=== PATIENT | female | born 1945 | race Caucasian/White ===

== ENCOUNTER 2017-01-24 06:12 | Day surgery (SDC) | payer OTHER, BC ==
[2017-01-18 16:58] VITALS: BMI 36.6
[2017-01-24] MEDS ORDERED: POVIDONE-IODINE 5% OPHTHALMIC PREP 30 ML SOLUTION ONE ×2 (07:18→08:21)
[2017-01-24] MEDS ORDERED: BACITRACIN 3.5 GM OPTHALMIC OINT TUBE ONE (07:18)
[2017-01-24] MEDS ORDERED: BUPIVACAINE HCL/PF 2.5 MG/ML - 30 ML VIAL IJ ONE (07:18)
[2017-01-24] MEDS ORDERED: LIDOCAINE 1%/EPI 1:100000 (20 ML MULTI DOSE VIAL) ONE ×2 (07:18→07:41)
[2017-01-24] MEDS ORDERED: TETRACAINE 0.5% OPHTH SOLN 2 ML BOTTLE ONE (07:18)
[2017-01-24] MEDS ORDERED: BUPIVACAINE HCL/PF 0.5% (5MG/ML) 10 ML VIAL ONE (07:21)
[2017-01-24] MEDS ORDERED: PROPOFOL 20 ML ONE ×6 (07:24→10:10)
[2017-01-24] MEDS ORDERED: MIDAZOLAM HCL 2 MG/2 ML SINGLE DOSE VIAL ONE (07:25)
[2017-01-24] MEDS ORDERED: SUCCINYLCHOLINE CHLORIDE 200 MG/10 ML VIAL ONE (07:25)
[2017-01-24] MEDS ORDERED: ceFAZolin SODIUM 1 GM VIAL ONE (07:57)
[2017-01-24] MEDS ORDERED: THROMBIN (BOVINE) 5,000 UNIT VIAL TP ONE (08:14)
[2017-01-24] MEDS ORDERED: ONDANSETRON 4 MG/2 ML VIAL ONE (08:31)
[2017-01-24] MEDS ORDERED: DEXAMETHASONE SOD PHOSPHATE 4 MG/1 ML VIAL ONE (08:31)
[2017-01-24] MEDS ORDERED: ACETAMINOPHEN 500 MG TABLET (FP) PO PRN (10:32)
[2017-01-24] MEDS ORDERED: oxyCODONE HCL 5 MG TABLET PO PRN (10:40)
[2017-01-24] MEDS ORDERED: ONDANSETRON 4 MG/2 ML VIAL IVPUSH PRN (10:40)
[2017-01-24] MEDS ORDERED: LACTATED RINGERS SOLUTION 1,000 ML IV SCH (10:45)
[2017-01-24] MEDS ORDERED: oxyCODONE HCL 5 MG TABLET ONE (12:06)
[2017-01-24 15:47] VITALS: BP 150/78; PULSE 76
[2017-01-24 15:54] VITALS: TEMP 98
--- NOTE | 2017-01-25 06:44 | OP ---
DATE OF OPERATION: 01/24/2017 PREOPERATIVE DIAGNOSES: 1. Epiphora with lower lid laxity. 2. Ectropion. 3. Punctal stenosis, both lower lids. POSTOPERATIVE DIAGNOSES: 1. Epiphora with lower lid laxity. 2. Ectropion. 3. Punctal stenosis, both lower lids. 4. Dermatochalasis bilaterally. 5. Temporal brow ptosis, left. PROCEDURE: 1. Repair of ectropion, right lower lid. 2. Repair of ectropion, left lower lid. 3. Repair of punctal stenosis, right lower lid with punctoplasty of peripunctal stenosis with punctoplasty, left lower lid. 4. Jorge cautery with conjunctivoplasty, right. 5. Jorge cautery with conjunctivoplasty, left. 6. Blepharoplasty, both upper lids. SURGEON: Mat Euceda MD ANESTHESIA: Local with sedation. COMPLICATIONS: None. ESTIMATED BLOOD LOSS: 5 to 10 mL. DESCRIPTION OF OPERATION: Patient brought to the operating room and placed on the operating room table. Vital signs were monitored by Anesthesia. Tetracaine was placed in both eyes. The patient had been marked preoperatively in the holding area in the upright position. She was positioned on the table. Vital signs were performed. Timeout was performed, and then, after tetracaine was placed in both eyes, the lid creases were marked symmetrically in both upper lids, approximately 10 mm above the lash line centrally, tapering nasally and temporally, not extending beyond the punctum, and these were marked with ruler and double checked with calipers to be symmetric. Then, leaving approximately 12 mm below the brow line, the patient with rather full eyelids, the superior extent of the ellipses were marked, extending out to the extent of the temporal pathak of both eyelids. The skin was pinched between forceps to ensure that there would be gentle lash eversion and nothing beyond. After intravenous sedation, each eyelid was then injected with 2-3 mL of 2% Xylocaine, 1:100,000 epinephrine, and this was allowed to disperse throughout the eyelid. Lateral canthal lines were marked as well in preparation for ectropion repair. Patient was prepped and draped in sterile fashion, exposing both eyes. The following procedure was performed on the upper lid. The creases were incised, and the upper ellipses were incised and the skin was removed from the upper lids as dictated by the previously marked lines. Hemostasis was achieved with [place] needle. A row of cautery was placed along the inferior edges of the incision to accentuate the lid crease. Nasally, the orbicularis was cut with a [place] needle and then gentle spreading with a Rodriguez scissors was used to identify the nasal fat pad, and the fat pad was then dissected out of the nasal eyelid and resected with a [place] needle. Hemostasis was achieved. This completed the fat dissection and the skin dissection. Attention was turned to the left brow, and an incision was made through the orbicularis, exposing the orbital rim. Then, using gentle dissection with a peanut, the tissue of the SOOF or suborbicularis oculi fat pad was elevated above the orbital rim for approximately 10 mm in the preperiosteal plane. Using a 30-gauge needle, this was passed through the skin-muscle flap, identifying the inferior edge of the brow just lateral and central, and a 5-0 Prolene was used to secure the periosteal suture 10 mm above the orbital rim and then through the area, delineating the inferior edge of the brow. This was tied with a slip knot. It was examined and the brow seemed to be symmetric and the Prolene was tied, resulting in a temporal browpexy to correct the brow asymmetry on the left. Antibiotic irrigation was used throughout the case. Cautery was used throughout the case. Then, the eyelids were closed with running and supplemented with interrupted 6-0 nylon suture, closing the incision, completing the blepharoplasty. Attention was now turned to the ectropion and epiphora. Bilaterally, lateral canthal incisions were made with a 15 blade. These were carried down to the periosteum with a [place] needle. The inferior shanda of the lateral canthal tendon was from the orbital rim with sharp dissection. The lids were overlapped, marked with a sterile marking pen, divided to the anterior and posterior lamella. The anterior lamella was excised. The posterior lamella was denuded of epithelium with an tangential scrape with a number-11 blade. Retractors were released with Bhargav, and the epithelium along the margin was excised, creating lateral tarsal strips. These were reattached to the orbital rim at the appropriate position at the junction with the superior shanda and lateral canthal tendons with double-arm 5-0 Prolene reinforced with 6-0 Vicryl suture. These were not tied at this point. Lids were everted. The punctum was dilated with punctal dilator, and a small snip punctoplasty was performed bilaterally to widen the punctal opening, excising the posterior lip of the punctum. Jorge cautery was placed below the punctum to result in punctal eversion and shrink the conjunctiva. The lateral canthal angle was reformed with buried 5-0 chromic sutures at the luna line of the upper and lower lid. Once these were tied, the Prolene was now tied, reattaching the tarsal strips to the orbital rim. The excess tarsal strip was overlapped over the Prolene tie with a 5-0 chromic interrupted. Subcuticular tissues were closed with 5-0 chromic. The skin was closed with running 6-0 plain suture in plastic technique. Bacitracin ointment was placed on the sutures of the upper lid and lateral canthal and in both eyes, and the patient was taken to recovery room in stable condition. MAT EUCEDA M.D. [id number]
--- NOTE | 2017-01-27 17:36 | PATH ---
Surgical Pathology Report Patient Name: TAVON TRINIDAD Med. Rec. #: [id number] /Age/Gender: 1945 (Age: 71) / F Account: [id number] Location: [facility] AM[facility] Taken: 01/24/2017 Received: 01/24/2017 Reported: 01/27/2017 Physicians: Evelio Euceda Specimen(s) Received A: RIGHT UPPER EYELID B: LEFT UPPER EYELID Clinical History Ectropion both lower eyelids Final Diagnosis A. EYELID, RIGHT UPPER, BLEPHAROPLASTY: SKIN WITH NO PATHOLOGIC FINDINGS. B. EYELID, LEFT UPPER, BLEPHAROPLASTY: SKIN WITH NO PATHOLOGIC FINDINGS. Electronically Signed Tammy Butler M.D. Gross Description A. Received in formalin labeled "right upper eyelid," is a 4.5 x 0.9 cm kuhn, irregular, unremarkable skin shave. [facility] sections are submitted in one cassette. B. Received in formalin labeled "left upper eyelid," is a 4.5 x 0.6 cm kuhn, irregular, unremarkable skin shave. [facility] sections are submitted in one cassette. 01/25/2017 [facility]01/25/2017
== END 2017-01-24 13:08 | disposition home or self-care (01) ==
LOC: FASU 06:12
PROVIDERS: ATTEND Ophthalmology
PROC: 0W020ZZ Alteration of Face, Open Approach (ICD-10-PCS; 2017-01-24)
PROC: 08SR0ZZ Reposition Left Lower Eyelid, Open Approach (ICD-10-PCS; principal; 2017-01-24 08:25)
PROC: 08SQ0ZZ Reposition Right Lower Eyelid, Open Approach (ICD-10-PCS; 2017-01-24 08:25)
DX: H02.102 Unspecified ectropion of right lower eyelid (principal); H02.105 Unspecified ectropion of left lower eyelid; H04.203 Unspecified epiphora, bilateral; H04.563 Stenosis of bilateral lacrimal punctum; H02.835 Dermatochalasis of left lower eyelid; H02.832 Dermatochalasis of right lower eyelid; H02.402 Unspecified ptosis of left eyelid
CPT/HCPCS: 88302-TC; 94760

== ENCOUNTER 2019-08-19 03:09 | Emergency (ER) | payer OTHER, BC ==
[2019-08-19] MEDS ORDERED: KETOROLAC TROMETHAMINE 30 MG/1 ML VIAL IVPUSH ONE (03:13)
--- NOTE | 2019-08-19 03:13 | PDOC ---
History of Present Illness - General Chief Complaint: Pain, Acute Stated Complaint: ABD/FLANK PAIN History Source: Patient - History of Present Illness Initial Comments: 08/19/19 04:33 Pt states that she is on macrobid for a UTI and she is seeing her PMD Jonathan tomorrow. Pt has no dysuria and no burning on urination. But she has RUQ pain and right side and right flank pain Currently pain is there only with palpation Pt has no fever and no chills. Pt has no diarrhea or constipation She notes that 3 days ago she ate a lot of starch and she felt pain since that time. Pain is getting worse. She had a GB removal 16 years ago. She has a PMHX of HTN PSHx of cholecystectomy, meniscus repair, breast surg. Is this a multiple visit Asthma Patient?: No Timing/Duration: other (3 days of pain since ; pt ate popcorn, rice and pasta; states that she was hungry. Since then RUQ pain) Severity: moderate Past History - Travel History Traveled outside of the country in the last 30 days: No Close contact w/someone who was outside of country & ill: No - Medical History Allergies/Adverse Reactions: Allergies Allergy/AdvReac Type Severity Reaction Status Date / Time metronidazole [From Flagyl] Allergy Severe Difficulty Verified 10/12/15 09:14 Breathing montelukast sodium Allergy Severe SOB Verified 10/12/15 09:14 [From Singulair] Penicillins Allergy Intermediate Rash Verified 10/12/15 09:14 codeine AdvReac Verified 08/30/17 01:18 Home Medications: Ambulatory Orders Olmesartan Medoxomil [Benicar (Nf)] 30 mg PO HS 08/20/14 Nitrofurantoin Monohyd/M-Cryst [Macrobid -] 100 mg PO BID 08/19/19 Anemia: No Asthma: No Cancer: No Cardiac Disorders: No CVA: No COPD: No CHF: No Dementia: No Diabetes: No GI Disorders: No Disorders: No HTN: Yes Hypercholesterolemia: No Liver Disease: No Seizures: No Thyroid Disease: No - Surgical History Abdominal Surgery: Yes Appendectomy: No Cardiac Surgery: No Cholecystectomy: Yes Lung Surgery: No Neurologic Surgery: No Orthopedic Surgery: Yes (RIGHT KNEE ARTHROSCOPIC SURGERY X2) - Psycho-Social/Smoking History Smoking Status: No Smoking History: Never smoked Have you smoked in the past 12 months: No Number of Cigarettes Smoked Daily: 0 Cigars Per Day: 0 Review of Systems - Review of Systems Constitutional: No: Symptoms Reported, See HPI, Chills, Diaphoresis, Fever, Loss of Appetite, Malaise, Night Sweats, Weakness, Weight Stable, Unintentional Wgt. Loss, Unexplained wgt Loss, Other HEENTM: No: Symptoms Reported, See HPI, Eye Pain, Blurred Vision, Tearing, Recent change in vision, Double Vision, Cataracts, Ear Pain, Ocular Prothesis, Ear Discharge, Nose Pain, Nose Congestion, Tinnitus, Nose Bleeding, Hearing Loss, Throat Pain, Throat Swelling, Mouth Pain, Dental Problems, Difficulty Swallowing, Mouth Swelling, Other Respiratory: No: Symptoms reported, See HPI, Cough, Orthopnea, Shortness of Breath, SOB with Exertion, SOB at Rest, Stridor, Wheezing, Productive cough, Hemoptysis, Other Cardiac (ROS): No: Symptoms Reported, See HPI, Chest Pain, Edema, Irregular Heart Rate, Lightheadedness, Palpitations, Syncope, Chest Tightness, Other ABD/GI: Yes: Other (RUQ pain and epigastric pain). No: Symptoms Reported, See HPI, Abdominal Distended, Abd. Pain w/ defecation, Blood Streaked Bowels, Constipated, Diarrhea, Difficulty Swallowing, Nausea, Poor Appetite, Poor Fluid Intake, Rectal Bleeding, Vomiting, Indigestion, Abdominal cramping, Tarry Stools : Yes: Other (Pt is being treated with macrobid for a UTI). No: Symptoms Reported, See HPI, Burning, Dysuria, Discharge, Frequency, Flank Pain, Hematuria, Incontinence, Pain, Urgency, Testicular Mass, Testicular Swelling, Lesions, Testicular Pain Musculoskeletal: No: Symptoms Reported, See HPI, Back Pain, Gout, Joint Pain, Joint Swelling, Muscle Pain, Muscle Weakness, Neck Pain, Joint Stiffness, Other Integumentary: No: Symptoms Reported, See HPI, Bruising, Change in Color, Change in Hair/Nails, Dryness, Erythema, Flushing, Lesions, Lumps, Pallor, Pruritus, Rash, Sweating, Other Neurological: No: Symptoms reported, See HPI, Headache, Numbness, Paresthesia, Pre-Existing Deficit, Seizure, Tingling, Tremors, Weakness, Unsteady Gait, Ataxia, Dizziness, Other Psychiatric: No: Anxiety, Depression, Frequent Crying, Stressors, Sleep Pattern Change, Emotional Problems, Mood Swings, Change in Appetite, Other Hematologic/Lymphatic: No: Symptoms Reported, See HPI, Anemia, Blood Clots, Easy Bleeding, Easy Bruising, Bleeding Diathesis, Lymph Node Abnormalities, Swollen Glands, Other *Physical Exam - Physical Exam General Appearance: Yes: Nourished, Appropriately Dressed, Apparent Distress, Mild Distress, Obese. No: Moderate Distress HEENT: positive: EOMI, RADHA, Normal ENT Inspection, Normal Voice, Symmetrical, TMs Normal, Pharynx Normal Neck: positive: Trachea midline, Supple Respiratory/Chest: positive: Lungs Clear, Normal Breath Sounds. negative: Accessory Muscle Use Cardiovascular: positive: Regular Rhythm, Regular Rate, S1, S2 Gastrointestinal/Abdominal: positive: Normal Bowel Sounds, Soft, Tenderness (RUQ), Mass (feels like hard stool in the RUQ) Musculoskeletal: positive: Normal Inspection. negative: CVA Tenderness Extremity: positive: Normal Capillary Refill, Normal Inspection, Normal Range of Motion, Tender, Pelvis Stable Integumentary: positive: Normal Color, Dry, Warm, Pale Neurologic: positive: radio repairer II-XII NML intact, Fully Oriented, Alert, Normal Mood/Affect, Normal Response, Motor Strength 5/5 ED Treatment Course - LABORATORY CBC & Chemistry Diagram: 08/19/19 03:30 08/19/19 03:30 Medical Decision Making - Medical Decision Making 08/19/19 04:35 Pt's BP is high because she fell asleep without her BP medication SHe woke up and took the nebicar at 1AM 08/19/19 05:42 Labs are normal. Pt has a normal WBC; normal CBC; pt has normal chem; she has normal BUN/Cr Normal LFTs and she has a normal UA; however she has some blood in the urine and she will not be taken off her macrobid and switcehd to a different abx, as iot seems to be working. 08/19/19 06:25 Patient Name: TAVON TRINIDAD THIS IS A PRELIMINARY REPORT FROM [facility] DATE OF SERVICE: 2019-08-19 05:39:34 IMAGES: [id number] EXAM: ABDOMEN \T\ PELVIS CT WITH IV CONTRAST One or more of the following dose reduction techniques was utilized: Automated exposure control, adjustment of the mA and or kVp according to patient's size, use of an iterative reconstruction technique. CTDIvol(mGy) = 18.7 Total DLP (mGycm) = 854.83 CONTRAST: 99 cc of Omnipaque 350 utilized IV HISTORY: Right upper quadrant pain. 73-year-old female. CONFIDENTIALITY NOTICE: This information is intended only for the use of the recipient(s) named above. If you are not the intended recipient, or a person responsible for delivering it to the intended recipient, you are hereby notified that any disclosure, copying, distribution or use of any of the information contained in or attached to this transmission is STRICTLY PROHIBITED. If you have received this transmission in error, please immediately notify [facility] [employer] [facility] and destroy the original transmission and its attachments without saving them in any manner [address] [facility] [employer] [facility] [address] [place] [address] Phone: [phone] ([phone]) Fax: Email: [email or web address] Patient Information: : 1945 Order Type: Preliminary Name: VIVI MONTES DE OCA Sex: F Study Description: CT ABDOMEN AND PELVIS Modality: CT [facility] Referring Physician: ADELA OLIVEIRA COMPARISON: None. FINDINGS: Cardiac silhouette is normal in appearance. Lung bases are clear. Diffuse fatty infiltration of the liver. Otherwise, uniform attenuation and enhancement is seen throughout the liver, spleen and pancreas. No ductal dilatation, mass or cystic change. The gallbladder has been surgically removed. No adrenal masses. Good excretion of IV contrast by both kidneys is present without hydronephrosis, mass or cystic change. No retroperitoneal adenopathy or fibrosis. Aortic calcifications are present as well as iliac artery calcifications. No evidence of aneurysmal dilatation stenosis. The contrast flow into both lower extremities is evident. Stomach, small bowel and colon show no evidence of bowel wall thickening. No acute inflammatory changes the right or left lower quadrant. No evidence of obstruction or ileus. The terminal ileum and appendix are normal in the right lower quadrant. Pelvic CT shows the appendix in the right lower quadrant to be normal in appearance. No diverticular disease. No acute inflammatory changes in the true pelvis. No pelvic adenopathy or free fluid in the true pelvis. The uterus is atrophic with small serosal uterine fibroids enhance. The ovaries also appear atrophic. The urinary bladder is normal in appearance. No evidence of ureterolithiasis or ureteral dilatation. The perivesicular and perirectal fat is well preserved. No visible diverticular disease. 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 No lytic or blastic lesions to bone. IMPRESSION Previous cholecystectomy. No biliary or pancreatic ductal dilatation. Diffuse fatty infiltration of the liver. 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 The uterus and ovaries are atrophic. No visible acute abdominal disease or process. No bowel obstruction or ileus. No significant stool burden in the colon. Discharge - Discharge Information Problems reviewed: Yes Clinical Impression/Diagnosis: Abdominal pain Condition: Improved Disposition: HOME - Follow up/Referral Referrals: Yazan Castillo MD [Primary Care Provider] - - Patient Discharge Instructions Patient Printed Discharge Instructions: Eating a Diet Rich in Fruits and Vegetables - Post Discharge Activity
[2019-08-19 03:24] VITALS: BP 195/95; PULSE 83; TEMP 98.3; BMI 37.0
[2019-08-19] MEDS ORDERED: KETOROLAC TROMETHAMINE 30 MG/1 ML VIAL ONE (03:28)
[2019-08-19 04:31] LABS: BASO % 0.7 % (0-2.0); EOS % 4.1 % (0-4.5); HEMATOCRIT 42.3 % (32.4-45.2); LYMPH % 31.8 % (8-40); MCH 29.4 pg (25.7-33.7); MCHC 33.2 g/dl (32.0-36.0); MEAN CELL VOLUME 88.7 fl (80-96); MEAN PLT VOLUME 8.1 fl (7.5-11.1); NEUT % 51.4 % (42.8-82.8); PLATELET COUNT 269 K/MM3 (134-434); RBC 4.77 M/mm3 (3.60-5.2); RDW 13.5 % (11.6-15.6); WHITE BLOOD COUNT 8.1 K/mm3 (4.0-10.0)
[2019-08-19 04:54] LABS: URINE APPEARANCE CLEAR; URINE BILIRUBIN NEGATIVE (NEGATIVE); URINE COLOR YELLOW; URINE GLUCOSE (UA) NEGATIVE (NEGATIVE); URINE KETONE NEGATIVE (NEGATIVE); URINE PROTEIN TRACE (NEGATIVE)
[2019-08-19 04:55] LABS: EPI CELLS 34 /uL (0-25.1); HYALINE CASTS 4 /uL (0-3.1); URINE BACTERIA 22 /uL (0-1359); URINE LEUK ESTERASE TRACE (NEGATIVE); URINE NITRITE NEGATIVE (NEGATIVE); URINE RBC 310 /uL (0-23.9); URINE UROBILINOGEN 0.2 mg/dL (0.2-1.0); URINE WBC 26 /uL (0-25.8)
[2019-08-19 04:57] LABS: ALBUMIN 4.1 g/dl (3.4-5.0); BILIRUBIN,TOTAL 0.5 mg/dL (0.2-1); CALCIUM 9.4 mg/dL (8.5-10.1); CREATININE 0.8 mg/dL (0.55-1.3); POTASSIUM 3.7 mmol/L (3.5-5.1); TOT PROT 7.6 g/dl (6.4-8.2)
== END 2019-08-19 06:32 | disposition home or self-care (01) ==
LOC: FER 03:09 → SUPCPDRO 03:09 → FER 06:32
PROC: 3E033GC Introduction of Other Therapeutic Substance into Peripheral Vein, Percutaneous Approach (ICD-10-PCS; principal; 2019-08-19)
DX: R10.11 Right upper quadrant pain (principal)
CPT/HCPCS: 36415; 74177-TC; 80053; 81003; 85025; 96374; 99285-25; Q9967

== ENCOUNTER 2020-06-16 10:20 | Emergency (ER) | payer OTHER, BC ==
[2020-06-16 10:34] VITALS: BP 159/60; PULSE 90; TEMP 98; BMI 36.8
[2020-06-16] MEDS: ACETAMINOPHEN 325 MG TABLET (FP) PO ONE ×2 (11:21→11:34)
[2020-06-16] MEDS: DIPHTH,PERTUSS(ACELL),TET 0.5 ML DISP.SYRIN IM ONE ×2 (11:22→11:34)
== END 2020-06-16 12:56 | disposition home or self-care (01) ==
LOC: FER 10:20
DX: M79.604 Pain in right leg (principal)
CPT/HCPCS: 73552-TC-RT-FY; 73590-TC-RT-FY; 90715; 99284-25

== ENCOUNTER 2021-06-10 14:39 | Emergency (ER) | payer OTHER, BC ==
[2021-06-10 15:17] VITALS: TEMP 98; BMI 36.3
[2021-06-10] MEDS ORDERED: FAMOTIDINE 20 MG/50 ML IVPB 20 MG/50 ML MG IVPB ONE ×2 (15:57→16:07)
[2021-06-10] MEDS ORDERED: MAG HYDROX/AL HYDROX/SIMETH 30 ML UNIT-DOSE CUP PO ONE (15:57)
[2021-06-10] MEDS ORDERED: MAG HYDROX/AL HYDROX/SIMETH 30 ML UNIT-DOSE CUP ONE (16:07)
[2021-06-10 16:36] LABS: ALBUMIN 3.9 g/dl (3.4-5.0); CALCIUM 9.3 mg/dl (8.5-10); CREATININE 0.6 mg/dl (0.55-1.3)
[2021-06-10 16:37] LABS: BILIRUBIN,TOTAL 0.5 mg/dl (0.2-1); TOT PROT 7.3 g/dl (6.4-8.2)
[2021-06-10 16:38] LABS: MCH 30.1 pg (25.7-33.7)
[2021-06-10 16:44] LABS: HEMATOCRIT 39.9 % (32.4-45.2); HEMOGLOBIN 13.7 G/dL (10.7-15.3); MCHC 34.4 g/dl (32.0-36.0); MEAN CELL VOLUME 87.3 fl (80-96); MEAN PLT VOLUME 7.6 fl (7.5-11.1); PLATELET COUNT 248.3 10^3/uL (134-434); RBC 4.57 10^6/uL (3.60-5.2); RDW 14.3 % (11.6-15.6); WHITE BLOOD COUNT 6.9 10^3/uL (4.0-10.8)
[2021-06-10 17:21] LABS: EPITHELIAL CELLS FEW /hpf
[2021-06-10 17:25] VITALS: BP 150/83; PULSE 76
[2021-06-10 18:24] LABS: PLATELET ESTIMATE ADEQUATE
[2021-06-10] MEDS ORDERED: ACETAMINOPHEN 1000 MG/100 ML BAG IVPB ONE (18:33)
[2021-06-10] MEDS ORDERED: ACETAMINOPHEN INJECTION 100 ML IVPB ONE (18:58)
== END 2021-06-10 20:48 | disposition home or self-care (01) ==
LOC: FER 14:39
PROC: 3E0333Z Introduction of Anti-inflammatory into Peripheral Vein, Percutaneous Approach (ICD-10-PCS; principal; 2021-06-10)
PROC: 3E033GC Introduction of Other Therapeutic Substance into Peripheral Vein, Percutaneous Approach (ICD-10-PCS; 2021-06-10)
DX: R10.9 Unspecified abdominal pain (principal)
CPT/HCPCS: 36415; 74177-TC; 80053; 81003; 81015; 83690; 84484; 85025; 87086; 87186; 93005; 99285-25; Q9967

== ENCOUNTER 2021-08-18 07:04 | Day surgery (SDC) | payer OTHER, BC ==
[2021-08-11 15:51] VITALS: BMI 36.6
[2021-08-18] MEDS ORDERED: LIDOCAINE HCL/PF 2% SDV 5ML VIAL ONE (07:40)
[2021-08-18] MEDS ORDERED: PROPOFOL 20 ML ONE ×4 (07:40)
[2021-08-18 10:01] VITALS: TEMP 98
[2021-08-18 10:04] VITALS: BP 154/70; PULSE 74
== END 2021-08-18 10:46 | disposition home or self-care (01) ==
LOC: FASU-ENDO 07:04
PROVIDERS: ATTEND Internal Medicine Gastroenterology
PROC: 0DB98ZX Excision of Duodenum, Via Natural or Artificial Opening Endoscopic, Diagnostic (ICD-10-PCS; 2021-08-18)
PROC: 0DB68ZX Excision of Stomach, Via Natural or Artificial Opening Endoscopic, Diagnostic (ICD-10-PCS; 2021-08-18)
PROC: 0DJD8ZZ Inspection of Lower Intestinal Tract, Via Natural or Artificial Opening Endoscopic (ICD-10-PCS; principal; 2021-08-18 09:09)
DX: Z12.11 Encounter for screening for malignant neoplasm of colon (principal); Z83.71 Family history of colonic polyps; K31.7 Polyp of stomach and duodenum; K29.50 Unspecified chronic gastritis without bleeding; R10.13 Epigastric pain
CPT/HCPCS: 43239; G0121; 88305-TC; 88342-TC

== ENCOUNTER 2021-10-25 09:39 | Emergency (ER) | payer OTHER, BC ==
[2021-10-25 09:55] VITALS: BP 144/84; PULSE 77; RESP 16; TEMP 98; BMI 36.3
[2021-10-25] MEDS ORDERED: CEPHALEXIN MONOHYDRATE 500 MG CAPSULE (UD) PO ONE (10:14)
[2021-10-25] MEDS ORDERED: CEPHALEXIN MONOHYDRATE 500 MG CAPSULE (UD) ONE (10:18)
[2021-10-25 10:39] LABS: EPITHELIAL CELLS FEW /hpf
== END 2021-10-25 10:33 | disposition home or self-care (01) ==
LOC: FER 09:39
DX: N30.90 Cystitis, unspecified without hematuria (principal)
CPT/HCPCS: 81003; 81015; 87086; 99283-25

== ENCOUNTER 2022-10-24 11:32 | Emergency (ER) | payer OTHER, BC ==
[2022-10-24 11:44] VITALS: BP 160/75; PULSE 93; RESP 18; TEMP 98; BMI 33.6
[2022-10-24] MEDS ORDERED: SODIUM CHLORIDE 0.9% 500 ML INFUS.BAG IV ONE (12:02)
[2022-10-24 12:41] LABS: HEMATOCRIT 42.7 % (32.4-45.2); HEMOGLOBIN 13.9 G/dL (10.7-15.3); MCH 29.4 pg (25.7-33.7); MCHC 32.5 g/dl (32.0-36.0); MEAN CELL VOLUME 90.5 fl (80-96); MEAN PLT VOLUME 7.8 fl (7.5-11.1); PLATELET COUNT 235.6 10^3/uL (134-434); RBC 4.72 10^6/uL (3.60-5.2); RDW 14.1 % (11.6-15.6); WHITE BLOOD COUNT 5.3 10^3/uL (4.0-10.8)
[2022-10-24 12:51] LABS: ALBUMIN 3.9 g/dl (3.4-5.0); BLOOD UREA NITROGEN 18.3 mg/dl (7-18); CALCIUM 9.1 mg/dl (8.5-10.1); CREATININE 0.7 mg/dl (0.6-1.3); POTASSIUM 3.7 mmol/L (3.5-5.1); SGOT/AST 10.8 U/L (15-37); SGPT/ALT 6.3 U/L (7-52); TOT PROT 6.3 g/dl (6.4-8.2)
[2022-10-24 13:09] LABS: EPITHELIAL CELLS FEW /hpf; URINE MUCUS FEW
[2022-10-24 13:56] LABS: BILIRUBIN,TOTAL 0.3 mg/dL (0.2-1)
== END 2022-10-24 14:29 | disposition home or self-care (01) ==
LOC: FER 11:32
DX: R10.84 Generalized abdominal pain (principal); R11.0 Nausea; E86.0 Dehydration
CPT/HCPCS: 36415; 74177-TC; 80053; 81003; 81015; 83690; 85027; 87086; 99285-25; Q9967

== ENCOUNTER 2023-03-15 13:58 | Emergency (ER) | payer OTHER, BC ==
[2023-03-15] MEDS ORDERED: ACETAMINOPHEN 325 MG TABLET (FP) PO ONE (14:31)
[2023-03-15 14:33] VITALS: BP 132/102; PULSE 72; RESP 17; TEMP 98.5; BMI 33.6
[2023-03-15] MEDS ORDERED: ACETAMINOPHEN 325 MG TABLET (FP) ONE (14:38)
== END 2023-03-15 16:02 | disposition home or self-care (01) ==
LOC: FER 13:58
DX: M25.552 Pain in left hip (principal); R22.42 Localized swelling, mass and lump, left lower limb; M25.572 Pain in left ankle and joints of left foot; W10.8XXA Fall (on) (from) other stairs and steps, initial encounter
CPT/HCPCS: 72131-TC; 73700-TC-RT; 93971-TC; 99284-25

== ENCOUNTER 2023-11-12 08:54 | Emergency (ER) | payer OTHER, BC ==
[2023-11-12 09:06] VITALS: BP 148/73; PULSE 71; RESP 18; TEMP 98.6; BMI 30.6
[2023-11-12 09:57] LABS: HEMATOCRIT 41.2 % (32.4-45.2); HEMOGLOBIN 13.6 G/dL (10.7-15.3); MCH 29.7 pg (25.7-33.7); MEAN CELL VOLUME 89.9 fl (80-96); MEAN PLT VOLUME 7.6 fl (7.5-11.1); PLATELET COUNT 268.3 10^3/uL (134-434); RBC 4.58 10^6/uL (3.60-5.2); RDW 14.1 % (11.6-15.6); WHITE BLOOD COUNT 7.7 10^3/uL (4.0-10.8)
[2023-11-12 10:03] LABS: PLATELET ESTIMATE ADEQUATE
[2023-11-12 10:20] LABS: ALBUMIN 4.4 g/dl (3.4-5.0); ALK PHOS 63 U/L (45-117); ANION GAP 11 mmol/L (4-13); BILIRUBIN,TOTAL 0.8 mg/dl (0.2-1); CHLORIDE 100 mmol/L (98-107); CO2 25 mmol/L (21-32); CREATININE 0.8 mg/dl (0.6-1.3); GLUCOSE,RANDOM 111 mg/dl (74-106); POTASSIUM 3.8 mmol/L (3.5-5.1); SGOT/AST 18 U/L (15-37); SGPT/ALT 14 U/L (7-52); SODIUM 136 mmol/L (136-145); TOT PROT 7.3 g/dl (6.4-8.2)
== END 2023-11-12 11:45 | disposition home or self-care (01) ==
LOC: FER 08:54
DX: M25.471 Effusion, right ankle (principal); M79.89 Other specified soft tissue disorders
CPT/HCPCS: 36415; 71046-TC-FY; 80053; 84484; 85027; 93005; 99285-25

== ENCOUNTER 2023-12-21 10:26 | Emergency (ER) | payer OTHER, BC ==
[2023-12-21 10:53] VITALS: BP 170/62; PULSE 67; RESP 18; TEMP 98.8; BMI 34.5
[2023-12-21] MEDS ORDERED: KETOROLAC TROMETHAMINE 30 MG/1 ML VIAL ONE (11:24)
[2023-12-21] MEDS ORDERED: LIDOCAINE 5% TOPICAL PATCH ONE (11:24)
[2023-12-21] MEDS: KETOROLAC TROMETHAMINE 30 MG/1 ML VIAL IM ONE (11:34)
[2023-12-21] MEDS: LIDOCAINE 5% TOPICAL PATCH TP ONE (11:34)
[2023-12-21 14:52] LABS: HIV INTERPRETATION NEGATIVE (NEGATIVE)
[2023-12-21] MEDS ORDERED: LIDOCAINE PATCH REMOVAL MC SCH (22:00)
== END 2023-12-21 14:06 | disposition home or self-care (01) ==
LOC: FER 10:26
PROC: 3E0233Z Introduction of Anti-inflammatory into Muscle, Percutaneous Approach (ICD-10-PCS; principal; 2023-12-21)
DX: M54.50 Low back pain, unspecified (principal)
CPT/HCPCS: 36415; 86803; 87389; 99284-25

== ENCOUNTER 2024-04-04 16:55 | Emergency (ER) | payer OTHER, BC ==
[2024-04-04 17:06] VITALS: BP 128/65; PULSE 63; RESP 18; TEMP 98.2; BMI 33.6
[2024-04-04 18:15] LABS: HEMATOCRIT 41.8 % (32.4-45.2); HEMOGLOBIN 14.1 G/dL (10.7-15.3); MCHC 33.6 g/dl (32.0-36.0); MEAN CELL VOLUME 86.4 fl (80-96); MEAN PLT VOLUME 7.9 fl (7.5-11.1); PLATELET COUNT 263.3 10^3/uL (134-434); RBC 4.84 10^6/uL (3.60-5.2); RDW 14.4 % (11.6-15.6); WHITE BLOOD COUNT 6.7 10^3/uL (4.0-10.8)
[2024-04-04 18:22] LABS: PLATELET ESTIMATE ADEQUATE
[2024-04-04 18:35] LABS: ALBUMIN 4.4 g/dl (3.4-5.0); ALK PHOS 60 U/L (45-117); ANION GAP 10 mmol/L (4-13); BILIRUBIN,TOTAL 0.5 mg/dl (0.2-1); CALCIUM 9.6 mg/dl (8.5-10.1); CHLORIDE 102 mmol/L (98-107); CO2 26 mmol/L (21-32); CREATININE 0.7 mg/dl (0.6-1.3); GLUCOSE,RANDOM 101 mg/dl (74-106); POTASSIUM 3.8 mmol/L (3.5-5.1); SGOT/AST 20 U/L (15-37); SGPT/ALT 18 U/L (7-52); SODIUM 138 mmol/L (136-145)
[2024-04-04] MEDS: SODIUM CHLORIDE 0.9% 500 ML INFUS.BAG IV ONE (19:10)
[2024-04-04 21:33] LABS: EPITHELIAL CELLS 0-5 /hpf
== END 2024-04-04 21:06 | disposition home or self-care (01) ==
LOC: FER 16:55
DX: E86.0 Dehydration (principal); N89.8 Other specified noninflammatory disorders of vagina; R10.84 Generalized abdominal pain; R53.1 Weakness; Z20.822 Contact with and (suspected) exposure to COVID-19
CPT/HCPCS: 0241U-QW; 36415; 71046-TC-FY; 74177-TC; 80053; 81003; 81015; 83605; 83690; 84484; 85027; 87086; 87186; 93005; 99285-25; Q9967

== ENCOUNTER 2024-04-23 14:23 | Emergency (ER) | payer OTHER, BC ==
[2024-04-23 14:45] VITALS: BP 166/66; PULSE 66; RESP 18; TEMP 97.3; BMI 33.6
[2024-04-23] MEDS ORDERED: DIPHTH,PERTUSS(ACELL),TET 0.5 ML DISP.SYRIN IM ONE (14:48)
[2024-04-23] MEDS: DIPHTH,PERTUSS(ACELL),TET 0.5 ML DISP.SYRIN IM ONE (14:50)
[2024-04-23 16:05] LABS: INR 0.96 (0.83-1.09)
[2024-04-23 16:08] LABS: ACTIVATED PTT 29.9 SECONDS (25.2-36.5)
[2024-04-23 16:11] LABS: HEMATOCRIT 35.3 % (32.4-45.2); HEMOGLOBIN 11.7 G/dL (10.7-15.3); MCHC 33.1 g/dl (32.0-36.0); MEAN CELL VOLUME 87.5 fl (80-96); MEAN PLT VOLUME 7.9 fl (7.5-11.1); PLATELET COUNT 218.2 10^3/uL (134-434); RBC 4.03 10^6/uL (3.60-5.2); RDW 14.3 % (11.6-15.6); WHITE BLOOD COUNT 6.2 10^3/uL (4.0-10.8)
[2024-04-23 16:13] LABS: PLATELET ESTIMATE ADEQUATE
[2024-04-23 16:33] LABS: BILIRUBIN,TOTAL 0.4 mg/dl (0.2-1); CREATININE 0.7 mg/dl (0.6-1.3); MAGNESIUM 2.2 mg/dL (1.8-2.4); PHOSPHOROUS 2.3 (2.5-4.9); POTASSIUM 3.8 mmol/L (3.5-5.1); TOT PROT 6.6 g/dl (6.4-8.2)
[2024-04-23 16:35] LABS: EPITHELIAL CELLS 0-5 /hpf
== END 2024-04-23 20:08 | disposition short-term general hospital (02) ==
LOC: FER 14:23
PROC: 3E0234Z Introduction of Serum, Toxoid and Vaccine into Muscle, Percutaneous Approach (ICD-10-PCS; principal; 2024-04-23)
DX: S06.6X9A Traumatic subarachnoid hemorrhage with loss of consciousness of unspecified duration, initial encounter (principal); Z23 Encounter for immunization; W01.198A Fall on same level from slipping, tripping and stumbling with subsequent striking against other object, initial encounter
CPT/HCPCS: 36415; 70450-TC; 70486-TC; 71045-TC-FY; 72125-TC; 72170-TC-FY; 80053; 81003; 81015; 83735; 84100; 84484; 85027; 85610; 85730; 86850; 86900; 86901; 87086; 90471; 90715; 93005; 99291

== ENCOUNTER 2024-08-08 08:01 | Emergency (ER) | payer OTHER, BC ==
[2024-08-08 08:11] VITALS: BP 149/80; PULSE 97; RESP 20; TEMP 99.1; BMI 33.5
[2024-08-08] MEDS: IBUPROFEN 400 MG TABLET (FP) PO ONE (08:42)
[2024-08-08] MEDS ORDERED: IBUPROFEN 400 MG TABLET (FP) PO ONE (08:45)
[2024-08-08 10:19] LABS: THROAT:GRP A STREP NOT DETECTED (NOTDETECTED)
== END 2024-08-08 08:58 | disposition home or self-care (01) ==
LOC: FER 08:01
DX: J02.9 Acute pharyngitis, unspecified (principal); R05.9 Cough, unspecified; R09.81 Nasal congestion; H93.8X2 Other specified disorders of left ear
CPT/HCPCS: 0241U-QW; 87651; 99283-25